=== PATIENT | male | born 1980 | race Caucasian/White ===

== ENCOUNTER 2025-01-10 19:54 | Emergency (ER) | payer BC, SELFPAY ==
--- OUTSIDE RECORDS SUMMARY | 2024-12-21 15:00 | XMS_ITS | Encounter Summary ---
Author Organization [facility] Address [address] [place] [id number] Care Team Providers Care Medical Practitioners Name Role Phone Erinn Vaca M.D., M.P.H. Primary Care Provid er Reason for Referral * Outpatient (Routine) - Closed Specialty Diagnoses / Procedures Referred By Reidac t Referred To Contact Diagnoses Instability Knee Right Pain Knee Right Swelling Knee Right Procedures DX Knee Right with Flexion and Patella 4 Views Sommer James MPAS, P.A.-C. 200 [place] [address] Phone: tel: fax: [facility] Referral ID Status Reason Start Date Expiration Date Visits Re quested Visits Authorized [id number] Closed 12/21/2024 03/23/2026 1 1 * Outpatient (Routine) - Authorized Specialty Diagnoses / Procedures Referred By Darius lafleur Referred To Contact Orthopedic Surgery Diagnoses Instability Knee Right Pain Knee Right Swelling Knee Right Sommer James MPAS, P.A.-Coty 200 [place] [address] Phone: tel: fax: [facility] Referral ID Status Reason Start Date Expiration Date V isits Requested Visits Authorized [id number] Authorized 12/21/2024 06/22/2026 1 1 Scheduling Instructions Ortho internal referral panel order, imaging before Consult visit * MRI/CAT/PET Scan (Routine) - Closed Specialty Diagnoses / Procedures Referred By Darius lafleur Referred To Contact Radiology Diagnoses Instability Knee Right Pain Knee Right Swelling Knee Right Procedures MR Knee Right without IV Contrast Sommer James MPAS, P.A.-Coty [address] [place] [phone] Phone: tel: fax: [facility] Referral ID Status Reason Start Date Expiration Date Visits Re quested Visits Authorized [id number] Closed 12/21/2024 03/23/2026 1 1 Reason for Visit * Reason Comments Knee Injury Right knee * Appointment Request (Routine) - Closed Specialty Diagnoses / Procedures Referred By Darius lafleur Referred To Contact Family Medicine Referral ID Status Reason Start Date Expiration Date Visits Re quested Visits Authorized [id number] Closed 12/21/2024 03/23/2026 1 1 Encounter Details Date Type Department Care Team (Late st Contact Info) Description 12/21/2024 3:00 PM CDT Office Visit Department of Family Medicine, [facility], in [place] [address] [place] [phone] Sommer James MPAS, P.APaula-Coty [address] [place] [phone] Instability Knee Right (Primary Dx); Pain Knee Right; Swelling Knee Right; Hypertension Essential Primary Social History Tobacco Use Types Packs/Day Years Used Date Smoking Tobacco: Former Passive Smoke Exposure: Past Smokeless Tobacco: Never Tobacco Cessation:Counseling Given: Not Answered Alcohol Use Standard Drinks/Week Comments Yes 1 (1 standard drink = 0.6 oz pur e alcohol) one to two beers in a week [facility] Utilities Answer Date Recorded In the past 12 months has [employer], gas, oil, or water [employer] threatened to shut off services in your home? Yes 12/21/2024 Hunger Vital Sign Answer Date Recorded Within the past 12 months, y ou worried that your food would run out before you got the money to buy more. Sometimes true Within the past 12 months, t he food you bought just didn't last and you didn't have money to get more. Sometimes true 03/2025 PRAPARE - Transportation Answer Date Re corded In the past 12 months, has l ack of transportation kept you from medical appointments or from getting medications? No 03/2025 In the past 12 months, has l ack of transportation kept you from meetings, work, or from getting things needed for daily living? No 12/21/2024 Housing Stability Answer Date Recorded What is your living situation today? I h ave a place to live today, but I am worried about losing it in the future 12/21/2024 Sex and Gender Information Value Date Recorded Sex Assigned at Male 11/26/2023 8:49 AM CDT Legal Sex Male 8:29 PM [employer] Gender Identity Male 11/26/2023 8:49 AM CDT Sexual Orientation Straight 11/26/2023 8: 49 AM CDT documented as of this encounter Last Filed Vital Signs Vital Sign Reading Time Taken Comments Blood Pressure 145/97 12/21/2024 2:33 PM CDT Alexander e BP Pulse 90 12/21/2024 2:33 PM CDT Temperature - - Respiratory Rate - - Oxygen Saturation - - Inhaled Oxygen Concentration - - Weight 154 kg (339 lb 1.1 oz) 12/21/2024 2:33 PM CDT Height - - Body Mass Index 40.57 03/06/2024 7:05 AM CDT documented in this encounter Progress Notes * Sommer James MPAS, P.A.-C. - 12/21/2024 3:00 PM CDT DATE OF VISIT: 12/21/2024 SUBJECTIVE CHIEF COMPLAINT / REASON FOR VISIT Sincere Davidson is a 44 y.o. male who presents for evaluation of Knee Injury (Right knee). The patient verbally consented to an audio recording of their visit to assist with the completion of documentation. History of Present Illness Mr. Sincere Davidson is a 44 year old male who presents with a knee injury sustained during softball 1.5 weeks ago. He sustained a knee injury while playing softball, initially hyperextending his knee a week and a half ago. Despite continuing to play, the knee did not improve and was further aggravated by another hyperextension last night, causing it to give out multiple times with popping. Today, he finds it very difficult to walk or put weight on his leg. He describes the hyperextension as the knee moving in an unnatural direction. He wears knee compression sleeves, which made it difficult to assess immediate swelling, but he noticed significant swelling by the end of the night. The knee gave out during a handshake line after stepping in a divot, causing him to fall. He experiences quick fatigue in the knee today. He has been using ice, heat, and compression for treatment but avoids taking Tylenol or ibuprofen due to a tendency to bleed. He reserves [id number] medications for migraines. He taped the kneehimself, which provided significant relief, but had to remove it due to skin irritation. No fevers or redness. He noticed bruising along the knee, which he attributes to the tape used for support. The knee is painful, especially with certain motions like twisting and stopping abruptly during softball. He experiences pain below the kneecap and towards the inside of the knee. He has a history of hypertension and was previously on losartan, which he has not taken for severalmonths. He works on his feet running a brake press, bending steel into forms, which has been challenging due to his knee pain. He has missed work because he could not walk properly. He uses crutches at home and has knee compression sleeves, but they do not alleviate the pain or prevent the knee from popping. OBJECTIVE VITAL SIGNS BP (!) 145/97 (BP Location: Right arm, Patient Position: Sitting, Cuff Size: Large) Comment: True BP Pulse 90 Wt (!) 154 kg BMI 40.57 kg/m?? Physical Exam Vitals reviewed. Constitutional General: He is not in acute distress. Appearance: Normal appearance. He is obese. He is not ill-appearing, toxic- appearing or diaphoretic. Musculoskeletal Right knee: Swelling, ecchymosis and crepitus present. No erythema or bony tenderness. Tenderness present over the medial joint line and lateral joint line. No patellar tendon tenderness. No LCL laxity or ACL laxity. Instability Tests: Anterior drawer test negative. Posterior drawer test negative. Anterior Milton test negative. Medial Jero test positive and lateral Jero test positive. Left knee: Normal. Comments: Visible and palpable snap during extension of the medial side. Difficulty bearing weight on right leg. Neurological Mental Status: He is alert. ASSESSMENT/ PLAN Instability Knee Right Pain Knee Right Swelling Knee Right Hyperextension injury with swelling, pain, and instability. Concerns for a ligamentous injury due to audible and palpable snap during extension. With the patient symptoms, pain and exam finding undergo MRI needed for assessment. Orthopedic referral planned. Prior to see orthopedic x-rays are required. - Order MRI of the right knee if further investigate ligaments and rule out meniscal tear. - Refer to orthopedic surgery. - Order x-ray of the right knee prior to orthopedic surgery - Patient was fitted for a knee brace in clinic however he states that the one at home has similar and does not require a new 1 - Advise icing, elevation, and compression. - Instruct to avoid softball and limit weight-bearing activities. Orders: MR Knee Right without IV Contrast; Future Orthopedic Surgery - Knee (sports) surgical consult (clinic); Future DX Knee Right with Flexion and Patella 4 Views; Future Hypertension Essential Primary Elevated blood pressure due to non-adherence to losartan, with possible exacerbated by pain. Resumption of medication that is prescribed. - Instruct to resume losartan. - Monitor blood pressure regularly. documented in this encounter Miscellaneous Notes * Assessment & Plan Note - Sommer James MPAS, P.A.-C. - 12/21/2024 3:00 PM CDTAssociated Problem(s): Hypertension Essential Primary Elevated blood pressure due to non-adherence to losartan, with possible exacerbated by pain. Resumption of medication that is prescribed. - Instruct to resume losartan. - Monitor blood pressure regularly. documented in this encounter Plan of Treatment Upcoming Encounters Date Type Department Care Team (Latest Contact Info) Description 01/29/2025 4:00 PM CDT Comprehensive Visit Department of Physical Medicine and Rehabilitation in [place], [place] [address] [place] [address] Sommer James MPAS, PPaulaA.-C. [address] [place] [phone] Tobi Guillen P.T., D.PPaulaT. [address] [place] [phone] Scheduled Referrals Name Type Priority Associated Diagnoses Order Schedule Orthopedic Surgery - Knee (sports) surgical consult (clinic) Outpatient Referral Routine Instability Knee Right Pain Knee Right Swelling Knee Right Expected: 12/21/2024 (Approximate), Expires: 03/23/2026 documented as of this encounter Results * MR Knee Right without IV Contrast (12/22/2024 3:31 PM CDT) Anatomical Region Laterality Modality Lower Extremity, Knee, Muscu loskeletal RST LOS, Musculoskeletal ARZ LOS, Muskuloskeletal FLA LOS Right Magne tic Resonance Impressions 12/22/2024 4:07 PM CDT IMPRESSION: 1. Patellofemoral predominant degenerative arthritis with extensive chondral defects along the lateral patellar and medial trochlear facets. Mild to moderate scattered chondromalacia elsewhere about the knee. 2. 0.6 cm cartilaginous body identified along the posterior margin of the medial meniscus. 3. 3.3 cm complex, multilobulated ganglion cyst bordering the posterior PCL. 4. Small knee joint effusion with scattered synovitis. Narrative 12/22/2024 4:07 PM CDT EXAM: MR KNEE RIGHT WITHOUT IV CONTRAST COMPARISON: Right knee radiograph 12/22/2023. FINDINGS: MRI of the right knee without IV contrast performed at 3 [facility]. Mild motion artifact somewhat degrades quality. MEDIAL COMPARTMENT: Linear intrasubstance degenerative signal throughout the medial meniscus without high-grade tear. Mild scattered bipolar chondromalacia along the medial tibio-femoral surfaces without a full-thickness chondral defect. No subchondral marrow change. LATERAL COMPARTMENT: The lateral meniscus is intact. Mild to moderate scattered bipolar chondromalacia along the lateral tibio-femoral surfaces without a full-thickness chondral defect. No subchondral marrow change. PATELLOFEMORAL COMPARTMENT: Patellofemoral alignment is maintained. Extensive, high-grade chondral defect along the lateral patellar facet extending to the median patellar ridge with mild subchondral edema (series 3, images 14-16). Moderate chondromalacia along the medial patellar facet. Focal high-grade chondral defect along the medial trochlear facet extending to the trochlear sulcus and lateral trochlear facet with minimal subchondral edema. Otherwise, moderate trochlear chondromalacia. LIGAMENTS AND TENDONS: Mucoid degeneration of the otherwise intact ACL. The PCL is intact. The MCL, LCL and posterolateral corner structures are intact. Mild intrasubstance signal within the distal popliteus tendon. Distal quadriceps tendinopathy. The patellar tendon is intact. BONES AND SOFT TISSUES: No stress reaction or evidence of acute fracture. Small knee joint effusion with moderate scattered synovitis. A 0.4 x 0.6 cm cartilaginous body borders the posterior horn of the medial meniscus (series 5, image 22). Complex, multilobulated ganglion cyst bordering the posterior margin of the PCL measures 1.1 x 3.3 cm (series 5, image 18). Additional smaller, somewhat complex ganglion cyst identified along the posterior articular surface. Mild subcutaneous soft tissue edema about the anterior knee. Intrinsic musculature maintains normal bulk signal intensity. Procedure Note Aiden Smith M.D. - 12/22/2024 EXAM: MR KNEE RIGHT WITHOUT IV CONTRAST COMPARISON: Right knee radiograph 12/22/2023. FINDINGS: MRI of the right knee without IV contrast performed at 3 [facility].Mild motion artifact somewhat degrades quality. MEDIAL COMPARTMENT: Linear intrasubstance degenerative signal throughoutthe medial meniscus without high-grade tear. Mild scattered bipolarchondromalacia along the medial tibio-femoral surfaces without afull-thickness chondral defect. No subchondral marrow change. LATERAL COMPARTMENT: The lateral meniscus is intact. Mild to moderatescattered bipolar chondromalacia along the lateral tibio-femoral surfaceswithout a full-thickness chondral defect. No subchondral marrow change. PATELLOFEMORAL COMPARTMENT: Patellofemoral alignment is maintained.Extensive, high-grade chondral defect along the lateral patellar facetextending to the median patellar ridge with mild subchondral edema (series3, images 14-16). Moderate chondromalacia along the medial patellar facet. Focal high-grade chondraldefect along the medial trochlear facet extending to the trochlear sulcusand lateral trochlear facet with minimal subchondral edema. Otherwise,moderate trochlear chondromalacia. LIGAMENTS AND TENDONS: Mucoid degeneration of the otherwise intact ACL.The PCL is intact. The MCL, LCL and posterolateral corner structures areintact. Mild intrasubstance signal within the distal popliteus tendon.Distal quadriceps tendinopathy. The patellar tendon is intact. BONES AND SOFT TISSUES: No stress reaction or evidence of acute fracture.Small knee joint effusion with moderate scattered synovitis. A 0.4 x 0.6cm cartilaginous body borders the posterior horn of the medial meniscus(series 5, image 22). Complex, multilobulated ganglion cyst bordering the posterior margin of the PCLmeasures 1.1 x 3.3 cm (series 5, image 18). Additional smaller, somewhatcomplex ganglion cyst identified along the posterior articular surface.Mild subcutaneous soft tissue edema about the anterior knee. Intrinsic musculature maintains normal bulksignal intensity. IMPRESSION: IMPRESSION: 1. Patellofemoral predominant degenerative arthritis with extensivechondral defects along the lateral patellar and medial trochlear facets.Mild to moderate scattered chondromalacia elsewhere about the knee. 2. 0.6 cm cartilaginous body identified along the posterior margin of themedial meniscus. 3. 3.3 cm complex, multilobulated ganglion cyst bordering the posteriorPCL. 4. Small knee joint effusion with scattered synovitis. us Sommer BEST, P.A.-C. IMG MRI PROCEDURES F inal Result * DX Knee Right with Flexion and Patella 4 Views (12/21/2024 4:38 PM CDT) Anatomical Region Laterality Modality Lower Extremity, Knee, Muscu loskeletal RST LOS, Musculoskeletal ARZ LOS, Muskuloskeletal FLA LOS Right Digit al Radiography Impressions 12/21/2024 4:53 PM CDT Mild degenerative arthritis right knee, greatest in the patellofemoral compartment. Moderate knee joint effusion and/or synovitis with a posterior intra-articular osteochondral body. Patellar enthesophytes. Small focus of sclerosis proximal tibial metadiaphysis. Narrative 12/21/2024 4:53 PM CDT EXAM: DX KNEE RIGHT WITH FLEXION AND PATELLA 4 VIEWS Procedure Note Edu Marinelli M.D. - 12/21/2024 EXAM: DX KNEE RIGHT WITH FLEXION AND PATELLA 4 VIEWS IMPRESSION: Mild degenerative arthritis right knee, greatest in the patellofemoralcompartment. Moderate knee joint effusion and/or synovitis with aposterior intra-articular osteochondral body. Patellar enthesophytes.Small focus of sclerosis proximal tibial metadiaphysis. us Sommer BEST, P.A.-C. IMG DIAGNOSTIC IMAGI NG PROCEDURES Final Result documented in this encounter Visit Diagnoses Diagnosis Instability Knee Right- Primary Pain Knee Right Swelling Knee Right Hypertension Essential Primary Instability Knee Right Pain Knee Right Swelling Knee Right Instability Knee Right Pain Knee Right Swelling Knee Right documented in this encounter Additional Health Concerns Assessment Noted Time PHQ-9 Depression Total Score: 0 03/26/20 19 4:26 PM CDT documented as of this encounter Care Teams Medical Practitioners Relationship Specialty Start Date End Date Erinn Vaca M.D., M.P.H. [address] [place] [phone] PCP - General Family Medicine 04/05/17 documented as of this encounter
--- OUTSIDE RECORDS SUMMARY | 2024-12-21 16:19 | XMS_ITS | Encounter Summary ---
Author Organization [facility] Address [address] [place] [address] Care Team Providers Care Credit Support Counselor Name Role Phone Erinn Vaca M.D., M.P.H. Primary Care Provid er Reason for Referral * Outpatient (Routine) - Closed Specialty Diagnoses / Procedures Referred By Contac t Referred To Contact Diagnoses Instability Knee Right Pain Knee Right Swelling Knee Right Procedures DX Knee Right with Flexion and Patella 4 Views Sommer James MPAS, P.A.-C. [address] [place] [phone] Phone: tel: fax: [facility] Referral ID Status Reason Start Date Expiration Date Visits Re quested Visits Authorized [id number] Closed 12/21/2024 03/23/2026 1 1 Reason for Visit * Outpatient (Routine) - Closed Specialty Diagnoses / Procedures Referred By Contac t Referred To Contact Diagnoses Instability Knee Right Pain Knee Right Swelling Knee Right Procedures DX Knee Right with Flexion and Patella 4 Views Sommer James MPAS, P.A.-Coty [address] [place] [phone] Phone: tel: fax: [facility] Referral ID Status Reason Start Date Expiration Date Visits Re quested Visits Authorized [id number] Closed 12/21/2024 03/23/2026 1 1 Encounter Details Date Type Department Care Team (Latest Contact Info) Description 12/21/2024 4:19 PM CDT - 12/21/2024 11:59 PM CDT Hospital Encounter Department of Radiology, [facility], in [place], [place] [address] [place] [phone] Sommer James MPAS, P.A.-C. 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 losartan (Cozaar) 50 mg tablet Take 1 tablet (50 mg total) by mouth daily. 90 tablet 3 03/06/2024 8:53 AM CDT 11/26/2023 documented as of this encounter Plan of Treatment Upcoming Encounters Date Type Department Care Team (Latest Contact Info) Description 01/29/2025 4:00 PM CDT Comprehensive Visit Department of Physical Medicine and Rehabilitation in [place], [place] [address] [place] [address] Sommer James MPAS, P.A.-C. [address] [place] [phone] Tobi Guillen, PSarah, D.P.T. [address] [place] [phone] documented as of this encounter Procedures Procedure Name Priority Date/Time Associated Diagnosis Comments DX KNEE RIGHT WITH FLEXION AND PATELLA 4 VIEWS RAD - Routine (most inpatients and all outpatients) 12/21/2024 4:38 PM CDT Instability Knee Right Pain Knee Right Swelling Knee Right documented in this encounter Results * DX Knee Right with Flexion and [...] enthesophytes.Small focus of sclerosis proximal tibial metadiaphysis. Sommer BEST, P.A.-C. IMG DIAGNOSTIC IMAGI NG PROCEDURES Final Result documented in this encounter Visit Diagnoses Diagnosis Instability Knee Right Pain Knee Right Swelling Knee Right documented in this encounter Additional Health Concerns Assessment Noted Time PHQ-9 Depression Total Score: 0 03/26/20 19 4:26 PM CDT documented as of this encounter Care Teams Credit Support Counselor Relationship Specialty Start Date End Date Erinn Vaca M.D., M.P.H. [address] [place] [phone] PCP - General Family Medicine 04/05/17 documented as of this encounter
--- OUTSIDE RECORDS SUMMARY | 2024-12-22 13:51 | XMS_ITS | Encounter Summary ---
Author Organization [facility] Address [address] [place] [address] Care Team Providers Care C Developer Name Role Phone Erinn Vaca M.D., M.P.H. Primary Care Provid er Reason for Referral * MRI/CAT/PET Scan (Routine) - Closed Specialty Diagnoses / Procedures Referred By Contac t Referred To Contact Radiology Diagnoses Instability Knee Right Pain Knee Right Swelling Knee Right Procedures MR Knee Right without IV Contrast Sommer James MPAS, P.A.-CPaula [address] [place] [address] Phone: tel: fax: [facility] Referral ID Status Reason Start Date Expiration Date Visits Re quested Visits Authorized [id number] Closed 12/21/2024 03/23/2026 1 1 Reason for Visit * MRI/CAT/PET Scan (Routine) - Closed Specialty Diagnoses / Procedures Referred By Contac t Referred To Contact Radiology Diagnoses Instability Knee Right Pain Knee Right Swelling Knee Right Procedures MR Knee Right without IV Contrast Sommer James MPAS, P.A.-[place] [address] [place] [address] Phone: tel: fax: [facility] Referral ID Status Reason Start Date Expiration Date Visits Re quested Visits Authorized [id number] Closed 12/21/2024 03/23/2026 1 1 Encounter Details Date Type Department Care Team (Latest Contact Info) Description 12/22/2024 1:51 PM CDT - 12/22/2024 11:59 PM CDT Hospital Encounter Department of Radiology, [facility], in [place], [place] [address] [place] [address] Sommer James MPAS, P.A.-C. 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 [address] [place] [phone] Tobi Guillen PSarah, D.P.T. [address] [place] [address] documented as of this encounter Procedures Procedure Name Priority Date/Time Associated Diagnosis Comments MR KNEE RIGHT WITHOUT IV CONTRAST RAD - Routine (most inpatients and all outpatients) 12/22/2024 3:31 PM CDT Instability Knee Right Pain Knee Right Swelling Knee Right documented in this encounter Results * MR Knee Right [...] P.A.-C. IMG MRI PROCEDURES F inal Result documented in this encounter Visit Diagnoses Diagnosis Instability Knee Right Pain Knee Right Swelling Knee Right documented in this encounter Additional Health Concerns Assessment Noted Time PHQ-9 Depression Total Score: 0 03/26/20 19 4:26 PM CDT documented as of this encounter Care Teams C Developer Relationship Specialty Start Date End Date Erinn Vaca M.D., M.P.H. [address] [place] [address] PCP - General Family Medicine 04/05/17 documented as of this encounter
[2025-01-10 20:11] VITALS: BP 167/110; PULSE 111; RESP 16; TEMP 35.7; O2SAT 96; BMI 40.8
[2025-01-10 22:35] VITALS: BP 167/116; PULSE 112; RESP 18; O2SAT 97
--- NOTE | 2025-01-10 23:03 | ED_ITS ---
HPI - General Adult General Chief complaint: Lower Extremity Swelling Stated complaint: R knee locked up Time Seen by Provider: 01/10/25 22:28 Source: patient Mode of arrival: ambulatory Limitations: no limitations History of Present Illness HPI narrative: 44-year-old male presenting today with right-sided knee pain. States that he was recently diagnosed with ?end-stage cartilage loss and has physical therapy scheduled for next month. States that he was at a restaurant eating when his knee started hurting he then went to [employer] walk around afterwards by the time he got done walking around [employer] he could hardly walk. Denies new injury or trauma. Denies fevers or chills. No systemic symptoms. History of hypertension, is treated. Related Data Allergies Allergy/AdvReac Type Severity Reaction Status Date / Time No Known Drug Allergies Allergy Verified 01/10/25 20:15 Review of Systems Status of ROS: Reports: 10 or more systems reviewed and unremarkable except as noted in History and below PFSH PFS Social History Smoking Status: Never smoker Do you use any of these nicotine containing products: None How often do you have a drink containing alcohol: never How often do you have six or more drinks on one occasion: Never AUDIT-C Alcohol total score: 0 Non-prescribed substance use: denies use Exam Narrative: Exam Narrative: Overweight, well-developed patient in no acute distress. Alert and oriented. Answers questions appropriately. Mood and affect are appropriate. Thoughts are goal oriented and rational. No tangential or magical thinking noted. Patient speaks in full sentences without needing to catch his breath. HEENT: Normocephalic atraumatic. Pupils are equally round reactive to light. Extraocular muscles are intact. Conjunctivae are moist without any icterus noted. Extremities: Right knee is normal appearance. There is no obvious joint effusion. He has tenderness along the medial joint line. No significant pain with compression of the patella. Passive range of motion is fairly normal but uncomfortable. He has no tenderness along the posterior knee. Normal DP and PT pulses. Const: Vital Signs, click to edit/add: Vital Signs - 24 hr 01/10/25 20:11 01/10/25 22:35 Temperature 96.3 F L Pulse Rate [Left F emoral] 111 H 112 H Respiratory Rate 16 18 Blood Pressure [Ri ght Upper Arm] 167/110 H 167/116 H Pulse Oximetry 96 97 Oxygen Delivery Me thod Room Air Room Air Course Vital Signs Vital signs: Initial Vital Signs Temperature 96.3 F L 01/10/25 20:11 Temperature Source Temporal Artery Scan 01/10/25 20:11 Pulse Rate 111 H 01/10/25 20:11 Pulse Rhythm Regular 01/10/25 20:11 Respiratory Rate 16 01/10/25 20:11 Blood Pressure 167/110 H 01/10/25 20:11 Blood Pressure Mean 129 H 01/10/25 20:11 Blood Pressure Position Sitting 01/10/25 20:11 Pulse Oximetry 96 01/10/25 20:11 Oxygen Delivery Method Room Air 01/10/25 20:11 Vital Signs Temperature 96.3 F L 01/10/25 20:11 Pulse Rate 111 H 01/10/25 20:11 Respiratory Rate 16 01/10/25 20:11 Blood Pressure 167/110 H 01/10/25 20:11 Pulse Oximetry 96 01/10/25 20:11 Oxygen Delivery Method Room Air 01/10/25 20:11 Temperature 96.3 F L 01/10/25 20:11 Pulse Rate 112 H 01/10/25 22:35 Respiratory Rate 18 01/10/25 22:35 Blood Pressure 167/116 H 01/10/25 22:35 Pulse Oximetry 97 01/10/25 22:35 Oxygen Delivery Method Room Air 01/10/25 22:35 Medical Decision Making MDM Narrative Medical decision making narrative: 44-year-old male with arthritis, pain flare-up. Toradol IM given in the ED today. Patient will be sent home with [place] to take as needed. Work note written for tomorrow. Follow-up with PCP. Discharge Plan Discharge Clinical Impression: Knee pain Patient Disposition: Home, Self-Care Condition: Stable Additional Instructions: Recommend you follow-up with your primary care provider this coming week to discuss pain management going forward. Eight tablets of [place] sent to [employer]. Stand Alone Forms: [employer] Info Instructions
[2025-01-10] MEDS: KETOROLAC 30 MG/ML inj 60 MG IM (23:05)
--- OUTSIDE RECORDS SUMMARY | 2025-01-10 23:12 | XMS_ITS | Encounter Summary ---
Author Organization [facility] Address [address] [place] [address] Care Team Providers Care Polish Maker Name Role Phone Erinn Vaca M.D., M.P.H. Primary Care Provid er Reason for Visit * Reason Onset Date Comments Knee Injury 12/21/2024 right Encounter Details Date Type Department Care Team (Late st Contact Info) Description 12/21/2024 Nurse Triage Department of Family Medicine, [facility] in [address] [place] [address] Kelsie Morrissey, R.N. 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 - 12/21/2024 7:24 AM CDT Chief Complaint / Reason for Call Patient is a 44 y.o. male calling regarding Knee Injury (right). Assessment Concern: Right knee injury Right knee has been intermittently painful with playing softball this season, plays 4 nights per week & weekends. 1.5 weeks ago he hyperextended his right knee while playing. Since he has had worse pain & swelling. Last night he hyperextended his right knee again. Knee has been giving out intermittently. Right knee pain (rates 4/10 at rest, 7/10 with walking) - notes he does not use OTC pain medications due to side effects. Entire knee is swollen. Has area of bruising estimates to be (3-4 inches below knee cap, 5 inches up inside of knee). Intermittent right ankle swelling. Last night he had pain that shot down his right leg & into his big toe. Present for: 1.5 weeks - had ongoing knee concern with playing softball prior Home cares tried: ice, heat, compression, athletic tape Calling to request: appointment today The recommended disposition is See a health care provider within 24 hours. - Patient was scheduled for an acute appointment via [employer]. Verification of patient's scheduled appointment day, date, time, and location was completed. and Encouraged patient to call back with any new, worsening, or persistent symptoms. Reason for Disposition Large swelling or bruise (> 2 inches or 5 cm) Protocols used: Knee Egaftk-Kglmq-AO Care Advice Patient/Caregiver understands and will follow care advice?: Yes, able to teach back Knee Dnptnh-Pzegk-ZC Nurse Kelsie Locke Dec 21, 2024 07:32 AM Care Advice SEE PCP WITHIN 24 HOURS USE A COLD PACK FOR PAIN, SWELLING, OR BRUISING: * Put a cold pack or an ice bag (wrapped in a moist towel) on the area for 20 minutes. * Repeat in 1 hour, then every 4 hours while awake. * Continue this for the first 48 hours (2 days) after an injury. * This will help decrease pain, swelling, and bruising. * Caution: Avoid frostbite. USE HEAT ON AREA AFTER 48 HOURS: * If pain, swelling, or bruising lasts more than 48 hours (2 days), then use heat on the area. * Use a heat pack, heating pad, or warm wet washcloth. * Do this for 10 minutes three times a day. * This will help increase blood flow and improve healing. * Caution: Avoid burn. Do not sleep on a heating pad. CALL BACK IF: * Pain becomes severe * You become worse documented in this encounter Plan of Treatment Upcoming Encounters Date Type Department Care Team (Latest Contact Info) Description 01/29/2025 4:00 PM CDT Comprehensive Visit Department of Physical Medicine and Rehabilitation in [place], [place] [address] [place] [address] Sommer James MPAS, P.A.-C. [address] [place] [phone] Tobi Guillen P.T., D.P.T. [address] [place] [address] documented as of this encounter Visit Diagnoses Not on filedocumented in this encounter Additional Health Concerns Assessment Noted Time PHQ-9 Depression Total Score: 0 03/26/20 19 4:26 PM CDT documented as of this encounter Care Teams Polish Maker Relationship Specialty Start Date End Date Erinn Vaca M.D., M.P.H. [address] [place] [phone] PCP - General Family Medicine 04/05/17 documented as of this encounter
--- OUTSIDE RECORDS SUMMARY | 2025-01-10 23:12 | XMS_ITS | Encounter Summary ---
Author Organization [facility] Address [address] [place] [address] Care Team Providers Care Complex Care Nurse Name Role Phone Erinn Vaca M.D., M.P.H. Primary Care Provid er Encounter Details Date Type Department Care Team (Late st Contact Info) Description 12/28/2024 Clinical Communication Department of Family Medicine, [facility], in [place] [address] [place] [phone] Sommer James MPAS, P.A.-C. 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 [address] [place] [phone] Tobi Guillen P.Cristino., D.P.T. [address] [place] [phone] documented as of this encounter Visit Diagnoses Not on filedocumented in this encounter Additional Health Concerns Assessment Noted Time PHQ-9 Depression Total Score: 0 03/26/20 19 4:26 PM CDT documented as of this encounter Care Teams Complex Care Nurse Relationship Specialty Start Date End Date Erinn Vaca M.D., M.P.H. [address] [place] [phone] PCP - General Family Medicine 04/05/17 documented as of this encounter
--- OUTSIDE RECORDS SUMMARY | 2025-01-10 23:12 | XMS_ITS | Clinical Summary ---
Author Organization [facility] Address [address] [place] [address] Care Team Providers Care Rn Disease Management Name Role Phone Erinn Vaca M.D., M.P.H. Primary Care Provid er Source Comments Patient records contain information from all sites at [facility]. For routine questions regarding patient records, call [phone] during business hours, M-F 8:00 AM - 5:00 PM Central Time. Record requests for emergency care only can be directed to [phone] at any time.[facility] Allergies No known active allergies Medications * This document contains information received from the source organization and may not represent a complete record from that organization. aspirin-acetami nophen-caffeine (EXCEDRIN MIGRAINE) 250-250-65 mg per tablet Take 2 tablets by mouth every 6 (six) hours as needed for pain. Active losartan (Cozaar) 50 mg tablet Take 1 tablet (50 mg total) by mouth daily. 90 tablet 3 03/06/2024 8:53 AM CDT 4 Active naproxen sodium (ALEVE/ANAPROX) 220 mg tablet Take 440 mg by mouth 2 (two) times a day as needed for pain. 12/22/19 Discontinu ed(Therapy completed) aspirin [address] tablet Take 81 mg by mouth daily. Pt took today due to symptoms 6-3-24 12/22/19 25 Discontinu ed(Therapy completed) albuterol 90 mcg/actuation inhaler Inhale 2 puffs every 4 (four) hours as needed. 5 12/22/19 25 Discontinu ed(Therapy completed) naproxen (Naprosyn) 500 mg tablet Take 500 mg by mouth. 5 12/22/19 25 Discontinu ed(Therapy completed) oxyCODONE (Roxicodone) 5 mg immediate release tablet Take 5 mg by mouth every 4 (four) hours as needed. 5 12/22/19 25 Discontinu ed(Non-com pliance) Active Problems Problem Noted Date Diagnosed Date Hypertension Essential Primary 11/26/2023 Assessment & Plan (12/21/2024 4:43 PM CDT): Elevated blood pressure due to non-adherence to losartan, with possible exacerbated by pain. Resumption of medication that is prescribed. - Instruct to resume losartan. - Monitor blood pressure regularly. 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 Pain Knee Right (Primary Dx) 12/28/2024 Clinical Communication Department of Family Medicine, [place], [place] [address] [place] [address] Sommer James MPAS, P.A.-C. 12/22/2024 1:51 PM CDT - 12/22/2024 11:59 PM CDT Hospital Encounter Department of Radiology, [facility], in [place], [place] [address] [place] [address] Sommer James MPAS, P.A.-C. Instability Knee Right; Pain Knee Right; Swelling Knee Right Discharge Disposition: Home or Self Care 12/22/2024 Results Follow-Up Department of Family Medicine, [place], [place] [address] [place] [address] Sommer James MPAS, P.A.-C. DX Knee Right with Flexion and Patella 4 Views, MR Knee Right without IV Contrast 12/21/2024 4:19 PM CDT - 12/21/2024 11:59 PM CDT Hospital Encounter Department of Radiology, [place] [address] [place] [address] Sommer James MPAS, P.A.-Lakisha. Instability Knee Right; Pain Knee Right; Swelling Knee Right Discharge Disposition: Home or Self Care 12/21/2024 3:00 PM CDT Office Visit Department of Family Medicine, [place] [address] [place] [address] Sommer James MPAS, P.A.-C. Instability Knee Right (Primary Dx); Pain Knee Right; Swelling Knee Right; Hypertension Essential Primary 12/21/2024 Nurse Triage Department of Family Medicine, [place] [address] [place] [address] Kelsie Morrissey RNestor Knee Injury (right) 10/20/2024 Orders Only RST PCP [facility] Erinn Vaca M.D., M.P.H. Monitoring For Therapeutic Drug Therapy from Last 3 Months Immunizations Immunization Administration Dates Next Due DTP 02/06/1988, 4,1982,1982,1982 Hib (HbOC) (discontinued) 04/27/1985 Hib (PRP-T) (ACTHIB, HIBERIX) 04/27/1985 IPV 02/06/1988, 4,1982,1982 MMR 03/25/1995,08/17/1983 Tdap 09/28/2024,12/19/2022,11/03/2014 influenza vaccine quad (FLUZONE/FLUARIX) (6 months and older)(PF) 09/23/2019(Deferred: Patient Refused) Family History Medical History Relation Name Comments Other cancer Father 1 rj chronic lymphoc itic lukemia recieving treatment Hyperlipidemia Father 2 Hypertension Father 2 Melanoma Father 3 rj Other cancer Father 3 rj cronic lymphosi tic lukymia Prostate cancer Maternal Grandfather denzel Lung cancer Maternal Grandmother 1 toni Lung cancer Maternal Grandmother 2 toni Other cancer Mother 1 sarah ''blood'' cance r recieving treatment Migraines Mother 2 Obesity Mother 2 Sleep apnea Mother 2 Thyroid disease Mother 2 Other cancer Mother 3 sarah some form of bl ood cancer Dementia Paternal Grandfather Prostate cancer Paternal Grandfather Breast cancer Paternal Grandmother 1 yulissa Breast cancer Paternal Grandmother 2 yulissa Relation Name Status Comments Father 1 rj Alive Father 2 Alive Father 3 rj Alive Maternal Grandfather denzel Alive Maternal Grandmother 1 toni Alive Maternal Grandmother 2 toni Alive Mother 1 sarah Alive Mother 2 Alive Mother 3 sarah Alive Paternal Grandfather Alive Paternal Grandmother 1 yulissa Alive Paternal Grandmother 2 yulissa Alive Social History Tobacco Use Types Packs/Day Years Used Date Smoking Tobacco: Former Passive Smoke Exposure: Past Smokeless Tobacco: Never Tobacco Cessation:Counseling Given: Not Answered Alcohol Use Standard Drinks/Week Comments Yes 1 (1 standard drink = 0.6 oz pur e alcohol) one to two beers in a week [facility] Utilities Answer Date Recorded In the past 12 months has [employer], gas, oil, or water Patient Feed threatened to shut off services in your [...] AM CDT 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 Gender Identity Male 11/26/2023 8:49 AM CDT Sexual Orientation Straight 11/26/2023 8: 49 AM CDT Last Filed Vital Signs Vital Sign Reading Time Taken Comments Blood Pressure 145/97 12/21/2024 2:33 PM CDT Alexander e BP Pulse 90 12/21/2024 2:33 PM CDT Temperature 36.2 C (97.2 F) 11/26/2023 8:44 AM CDT Respiratory Rate 18 11/21/2023 1:42 AM CDT Oxygen Saturation 98% 11/21/2023 1:42 AM CDT Inhaled Oxygen Concentration - - Weight 154 kg (339 lb 1.1 oz) 12/21/2024 2:33 PM CDT Height 194.7 cm (6' 4.65) 03/06/2024 7:05 AM CD T Body Mass Index 40.57 03/06/2024 7:05 AM CDT Plan of Treatment Upcoming Encounters Date Type Department Care Team (Latest Contact Info) Description 01/29/2025 4:00 PM CDT Comprehensive Visit Department of Physical Medicine and Rehabilitation in [place], [place] [address] [place] [address] Sommer James MPAS, P.A.-C. [address] [place] [phone] Tobi Guillen, P.T., D.P.T. [address] [place] [phone] Health Maintenance Due Date Last Done Comments Hepatitis C Screening 1982 Hepatitis B Vaccines (1 of 3 - 19+ 3-dose series) 2001 COVID-19 Vaccine ( season) 2024 Influenza Vaccine (#1) 2024 Creatinine Level (Kidney Function Test) 12/17/2024 12/18/2023, 11/26/2023, 10/12/2019, Additional history exists Potassium Level 12/17/2024 12/18/2023, 11/12, 10/12/2019, Additional history exists Sodium Level 12/17/2024 12/18/2023, 11/12, 10/12/2019, Additional history exists Office Visit for Blood Pressure Check / Re-check 03/23/2025 12/21/2024 Visit: Chronic Disease, age 18+ 12/21/2025 12/21/2024 Lipid (Cholesterol) Screening 11/25/2028 11/26/2023 DTaP,Tdap,and Td Vaccines (9 - Td or Tdap) 09/28/2034 09/28/2024, 12/19/2022, 11/03/2014, Additional history exists IPV Vaccines Completed 02/06/1988, 10/1983, 1982, Additional history exists Depression Screening (Annual PHQ-2) Completed 12/21/2024 HPV Vaccines Aged Out No longer eligi ble based on patient's age to complete this topic Pneumococcal vaccine (0-49 years) Aged Out No longer eligible based on patient's age to complete this topic Procedures Procedure Name Priority Date/Time Associated Diagnosis Comments MR KNEE RIGHT WITHOUT IV CONTRAST RAD - Routine (most inpatients and all outpatients) 12/22/2024 3:31 PM CDT Instability Knee Right Pain Knee Right Swelling Knee Right DX KNEE RIGHT WITH FLEXION AND PATELLA 4 VIEWS RAD - Routine (most inpatients and all outpatients) 12/21/2024 4:38 PM CDT Instability Knee Right Pain Knee Right Swelling Knee Right SODIUM, S/P Routine 12/18/2023 4:34 PM CDT Hypertension Essential Primary POTASSIUM, S/P Routine 12/18/2023 4:34 PM CDT Hypertension Essential Primary CREATININE WITH EGFR, S/P Routine 12/18/2023 4:34 PM CDT Hypertension Essential Primary LIPID PANEL, S Routine 11/26/2023 10:10 AM CDT Screening Lipid from Last 3 Months or Most Recently Relevant to Health Maintenance Results * MR Knee Right without IV Contrast (12/22/2024 3:31 PM CDT) Anatomical Region Laterality Modality Lower Extremity, Knee, Muscu loskeletal RST LOS, Musculoskeletal ARZ LOS, Muskuloskeletal FLA LOS Right Magngiselle tic Resonance Impressions 12/22/2024 4:07 PM CDT [...] IMG DIAGNOSTIC IMAGI NG PROCEDURES Final Result * Sodium (12/18/2023 4:34 PM CDT) Sodium, S 139 135 - 145 mmol/L 12/18/2023 7:58 PM CDT DTL Blood (Blood, Venous) 12/18/2023 4:34 PM CDT 12/18/2023 6:55 PM CDT Zohreh Camacho APRN, C.N.P., D.N.P. LAB BLOOD AD D-ON Final Result Performing Organization Address [facility] Co de Phone Number [facility] [address] [place] [address] * Potassium (12/18/2023 4:34 PM CDT) Potassium, S 4.3 3.6 - 5.2 mmol/L 12/18/2023 7:58 PM CDT DTL Blood (Blood, Venous) 12/18/2023 4:34 PM CDT 12/18/2023 6:55 PM CDT Zohreh Camacho APRN, C.N.P., D.N.P. LAB BLOOD AD D-ON Final Result Performing Organization Address [facility] Co de Phone Number [facility] [address] [place] [address] * Creatinine with Estimated GFR (12/18/2023 4:34 PM CDT) Creatinine 1.09 0.74 - 1.35 mg/dL 12/18/2023 7:58 PM CDT DTL Estimated GFR (eGFR) 87 >=60 mL/min/BSA 12/18/2023 7:58 PM CDT DTL Comment: Estimated GFR calculated using the 2020 CKD_EPI creatinine equation. Blood (Blood, Venous) 12/18/2023 4:34 PM CDT 12/18/2023 6:55 PM CDT Zohreh Lakisha Vences APRN.N.P., D.N.P. LAB BLOOD AD D-ON Final Result [facility] [address] [place] [address], [facility] [address] [place] [address] * (ABNORMAL) Lipid Panel (11/26/2023 10:10 AM CDT) Triglycerides 139 mg/dL 11/26/2023 12:59 PM CDT DTL Comment: ----REFERENCE VALUE---- Normal: <150 mg/dL Borderline High: 150-199 mg/dL High: 200-499 mg/dL Very High: > or =500 mg/dL Cholesterol, Total 225(H) mg/dL 2023 12:59 PM CDT DTL Comment: ----REFERENCE VALUE---- Desirable: < 200 mg/dL Borderline High: 200 - 239 mg/dL High: > or = 240 mg/dL Cholesterol, LDL, Calculated 150(H) mg/dL 11/26/2023 12:59 PM CDT DTL Comment: ----REFERENCE VALUE---- Desirable: <100 mg/dL Above Desirable: 100-129 mg/dL Borderline High: 130-159 mg/dL High: 160-189 mg/dL Very High: >=190 mg/dL ----ADDITIONAL INFORMATION---- LDL cholesterol calculated using the Ellis/NIH equation. Cholesterol, HDL, S 50 >=40 mg/dL 11/26/2023 12:59 PM CDT DTL Cholesterol, Non-HDL, Calculated 175(H) mg/dL 11/26/2023 12:59 PM CDT DTL Comment: ----REFERENCE VALUE---- Desirable: <130 mg/dL Above Desirable: 130-159 mg/dL Borderline High: 160-189 mg/dL High: 190-219 mg/dL Very High: > or =220 mg/dL Fasting (8 HR or more) Yes 11/26/2023 12:28 PM CDT DTL Blood (Blood, Venous) 11/26/2023 10:10 AM CDT 11/26/2023 12:28 PM CDT Zohreh Zen Camacho APRN, C.N.P., D.N.P. LAB BLOOD AD D-ON Final Result [facility] [address] [place] [address], [place] DTL [facility] [address] [place] [address] from Last 3 Months or Most Recently Relevant to Health Maintenance Insurance [facility] [employer] [facility] [place] Care Teams Rn Disease Management Relationship Specialty Start Date End Date Erinn Vaca M.D., M.P.H. [address] [place] [address] PCP - General Family Medicine 04/05/17
--- OUTSIDE RECORDS SUMMARY | 2025-01-10 23:12 | XMS_ITS | Encounter Summary ---
Author Organization [facility] Address [address] [place] [address] Care Team Providers Care Postpartum Nurse Name Role Phone Erinn Vaca M.D., M.P.H. Primary Care Provid er Reason for Referral * Physical Therapy (Routine) - Authorized Specialty Diagnoses / Procedures Referred By Darius t Referred To Contact Diagnoses Pain Knee Right Procedures PT Evaluate and treat Sommer James MPAS, P.A.-C. [address] [place] [phone] Phone: tel: fax: [facility] Referral ID Status Reason Start Date Expiration Date V isits Requested Visits Authorized [id number] Authorized 12/28/2024 03/30/2026 1 1 Encounter Details Date Type Department Care Team (Late st Contact Info) Description 12/28/2024 Orders Only Department of Family Medicine, [facility], in [place], [place] [address] [place] [phone] Sommer James MPAS, P.A.-C. 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 [address] [place] [phone] Tobi Guillen, P.T., D.P.T. [address] [place] [phone] documented as of this encounter Visit Diagnoses Diagnosis Pain Knee Right- Primary documented in this encounter Additional Health Concerns Assessment Noted Time PHQ-9 Depression Total Score: 0 03/26/20 19 4:26 PM CDT documented as of this encounter Care Teams Postpartum Nurse Relationship Specialty Start Date End Date Erinn Vaca M.D., M.P.H. [address] [place] [address] PCP - General Family Medicine 04/05/17 documented as of this encounter
--- OUTSIDE RECORDS SUMMARY | 2025-01-10 23:12 | XMS_ITS | Encounter Summary ---
Author Organization [facility] Address [address] [place] [address] Care Team Providers Care Campground Cleaning Attendant Name Role Phone Erinn Vaca M.D., M.P.H. Primary Care Provid er Encounter Details Date Type Department Care Team (Late st Contact Info) Description 12/22/2024 Results Follow-Up Department of Family Medicine, [facility], in [place], [place] [address] [place] [phone] Sommer James, ESTEPHANIA, P.A.-C. [address] [place] [phone] DX Knee Right with Flexion and Patella 4 Views, MR Knee Right without IV Contrast Social History Tobacco Use Types Packs/Day Years Used Date Smoking Tobacco: Former Passive Smoke Exposure: Past Smokeless Tobacco: Never Alcohol Use Standard Drinks/Week Comments Yes 1 (1 standard drink = 0.6 oz pur e alcohol) one to two beers in a week [facility] Utilities Answer Date Recorded In the [...] AM CDT Legal Sex Male 8:29 PM [employer] Gender Identity Male 11/26/2023 8:49 AM CDT Sexual Orientation Straight 11/26/2023 8: 49 AM CDT documented as of this encounter Plan of Treatment Upcoming Encounters Date Type Department Care Team (Latest Contact Info) Description 01/29/2025 4:00 PM CDT Comprehensive Visit Department of Physical Medicine and Rehabilitation in [place], [place] [address] [place] [phone] Sommer James MPAS, P.A.-C. [address] [place] [phone] Tobi Guillen P.T., D.P.T. [address] [place] [phone] documented as of this encounter Visit Diagnoses Not on filedocumented in this encounter Additional Health Concerns Assessment Noted Time PHQ-9 Depression Total Score: 0 03/26/20 19 4:26 PM CDT documented as of this encounter Care Teams Campground Cleaning Attendant Relationship Specialty Start Date End Date Erinn Vaca M.D., M.P.H. [address] [place] [phone] PCP - General Family Medicine 04/05/17 documented as of this encounter
--- OUTSIDE RECORDS SUMMARY | 2025-01-10 23:13 | XMS_ITS | Clinical Summary ---
Author Organization [employer] [facility] Address [address] [place] [address] Care Team Providers Care External Relations Manager Name Role Phone Staff, Other Clinical Primary Care Provider Unav ailable Allergies No known active allergies Medications albuterol HFA (PRO-AIR; VENTOLIN; PROVENTIL) 90 mcg/actuation inhalerIndicati ons:Bronchitis, Influenza A Inhale 2 Puffs by mouth every 4 hours if needed for Shortness Of Breath. 1 Each 5 Active oxyCODONE 5 mg immediate release tabletIndicatio ns:Contusion of left hand including fingers, initial encounter Take 1 Tablet (5 mg) by mouth every 4 hours if needed for Pain. 8 Tablet 5 Active naproxen 500 mg tabletIndicatio ns:Contusion of left hand including fingers, initial encounter Take 1 Tablet (500 mg) by mouth two times daily. 21 Tablet 5 Active Immunizations Immunization Administration Dates Next Due Tdap 09/28/2024,12/19/2022 Social History Tobacco Use Types Packs/Day Years Used Date Smoking Tobacco: Never Smokeless Tobacco: Never Tobacco Cessation:Counseling Given: Not Answered Alcohol Use Standard Drinks/Week Comments Never 0 (1 standard drink = 0.6 oz pur e alcohol) Interpersonal Safety Answer Date Record ed Are you being hit, kicked, p ushed or yelled at (see row info)? No 09/28/2024 Interpersonal Safety Abuse 12 - 18 Not on file 09/28/2024 Interpersonal Safety Ambulatory Vulnerability No t on file 09/28/2024 Sex and Gender Information Value Date Recorded Sex Assigned at Not on file Legal Sex Male 8:17 AM CDT Gender Identity Not on file Sexual Orientation Not on file Obstetrics History Last Filed Vital Signs Vital Sign Reading Time Taken Comments Blood Pressure 145/100 09/28/2024 3:07 PM CDT Pulse 94 09/28/2024 3:07 PM CDT Temperature 36.6 C (97.9 F) 09/28/2024 3:07 PM CDT Respiratory Rate 16 09/28/2024 3:07 PM CDT Oxygen Saturation 97% 09/28/2024 3:07 PM CDT Inhaled Oxygen Concentration - - Weight 151 kg (333 lb) 09/28/2024 3:04 PM CDT Height 193 cm (6' 4) 09/28/2024 3:04 PM CDT Body Mass Index 40.53 09/28/2024 3:04 PM CDT Plan of Treatment Health Maintenance Due Date Last Done Comments Depression screening for age 12+ 1994 HIV for age 15-65 1997 BMI (ht and wt on same day) for age 18+ 2000 Hepatitis C screening for ag e 18-79 2000 Hepatitis B series for 19+ ( 1 of 3 - 19+ 3-dose series) 2001 Lipids for age 35-44 2017 COVID-19 vaccine series ( season) 2024 Influenza Vaccine (Season Ended) 2025 Tetanus booster 09/28/2034 09/28/2024, 12/19/2022 Tdap Completed 09/28/2024, 12/19/2022 Pneumococcal series for age 6-49 Aged Out No longer eligible b ased on patient's age to complete this topic Additional Health Concerns Infection Onset Date Last Indicated Rule-Out Influenza 07/30/2024 07/30/[address] [place] [address] [facility] Care Teams External Relations Manager Relationship Specialty Start Date End Date Staff, Other Clinical . PCP - General 10/12/19
[2025-01-10 23:15] VITALS: BP 156/115; PULSE 106; RESP 18; O2SAT 94
== END 2025-01-10 23:15 | disposition home or self-care (01) ==
PROVIDERS: Emergency Provider Family Medicine
DX: M25.561 Pain in right knee (principal)
CPT/HCPCS: 96372; 99283; J1885